=== PATIENT | male | born 1990 | race Two or more races ===

== ENCOUNTER → 2020-04-26 10:29 | Outpatient (BNVA) | payer SELFPAY | PROVIDERS: Visit Provider Urology | DX: Z76.89 Persons encountering health services in other specified circumstances (principal) | CPT/HCPCS: 55250 ==

== ENCOUNTER 2020-11-02 14:02 | Outpatient (REF) | payer OTHER, SELFPAY ==
--- NOTE | ~2020-11-02 | XR_ITS ---
EXAMINATION: XR chest 2V CLINICAL INFORMATION: Reason for Exam OTHER CHEST PAIN COMPARISON: No prior chest x-ray available in our system for comparison at the time of this dictation. TECHNIQUE: XR chest 2V Lungs and Brittny: Both lungs are clear. Pleura: Normal. Costophrenic angles are sharp. No pneumothorax. Heart: The heart is normal in size. Mediastinum: The mediastinum is within normal limits.. Bones: Skeletal structures included are normal for patient's age. XR/XR chest 2V IMPRESSION: Normal chest x-ray.
--- NOTE | 2020-11-02 14:12 | ECG_ITS ---
Test Reason : CP Blood Pressure : / mmHG Vent. Rate : 068 BPM Atrial Rate : 068 BPM P-R Int : 148 ms QRS Dur : 088 ms QT Int : 366 ms P-R-T Axes : 031 068 -05 degrees QTc Int : 389 ms Normal sinus rhythm Abnormal QRS-T angle, consider primary T wave abnormality Abnormal ECG When compared with ECG of 09-MAY-2009 09:27, No significant change was found Referred By: Marielle Sharma Electronically Signed By:Abilio Chase
== END 2020-11-02 14:03 | disposition home or self-care (01) ==
LOC: HO.XRAY 14:02
PROVIDERS: PCP Nurse Practitioner Primary Care; Visit Provider Nurse Practitioner Primary Care
DX: R07.89 Other chest pain (principal); S20.212D Contusion of left front wall of thorax, subsequent encounter; S29.8XXD Other specified injuries of thorax, subsequent encounter; X58.XXXD Exposure to other specified factors, subsequent encounter
CPT/HCPCS: 71046; 93005

== ENCOUNTER 2025-03-13 16:33 | Outpatient (REF) | payer OTHER, SELFPAY ==
--- OUTSIDE RECORDS SUMMARY | 2025-03-13 11:30 | XMS_ITS | Encounter Summary ---
Author Organization [employer] Address [address] [place] [address] [place] [address] Care Team Providers Care Contact Center Associate Name Role Phone Marielle Sharma Primary Care Provider [phone] Reason for Referral * Hospital - Outpatient (Routine) - Pending Review Specialty Diagnoses / Procedures Referred By Lindsay gracia Referred To Contact Diagnoses Daytime somnolence Procedures Polysomnography Marielle Sharma ANP [address] [place] [address] Phone: tel: fax: Sleep Medicine Service [address], [address] [place] [address] Phone: tel: fax: Referral ID Status Reason Start Date Expiration Date V isits Requested Visits Authorized [id number] Pending Review 03/13/2025 03/13/2026 1 1 Encounter Details Date Type Department Care Team (Late st Contact Info) Description 03/13/2025 11:30 AM EDT Office Visit [facility] MEDICINE [address] [place] [address] Marielle Sharma ANP [address] [place], [place] [phone] Daytime somnolence (Primary Dx); Acute pain of left shoulder; Healthcare maintenance; Routine screening for STI (sexually transmitted infection); Vitamin D insufficiency; Elevated lipids; Other headache syndrome Social History Tobacco Use Types Packs/Day Years Used Date Smoking Tobacco: Never Passive Smoke Exposure: Never Smokeless Tobacco: Never Alcohol Use Standard Drinks/Week Comments Not Currently 0 (1 standard drink = 0.6 oz pur e alcohol) oca Depression Answer Date Recorded Patient Health Questionnaire-9 Score 4 11/25/2024 Patient Health Questionnaire-9 Score 4 11/25/2024 Last PHQ-9: Questionnaire Data Not on file 0 11/25/2024 Housing Stability Answer Date Recorded What is your housing situation today? I have wally oakley 03/13/[address] you li ve. Do you have problems with any of the following? None of the above 03/13/2025 Food Insecurity Answer Date Recorded Within the past 12 months, y ou worried that your food would run out before you got money to buy more: Never True 03/13/2025 Within the past 12 months,th e food you bought just didn't last and you didn't have enough money to get more: Never True Transportation Answer Date Recorded In the past 12 months, has l ack of transportation kept you from medical appts, meetings, work or from getting things needed for daily living? No 03/13/2025 Utilities Answer Date Recorded In the past 12 months, has t he electric, gas, oil or water company threatened to shut off services in your home? Yes 03/13/2025 Depression Answer Date Recorded Patient Health Questionnaire-2 Score 2 11/25/2024 Internet Access Answer Date Recorded Internet Access Q1 Yes 03/13/2025 Internet Access Q2 Not on file 03/13/2025 Sex and Gender Information Value Date Recorded Sex Assigned at Male 05/19/2022 10:16 AM EDT Legal Sex Male 10:16 AM EDT Gender Identity Male 05/19/2022 10:16 AM EDT Sexual Orientation Straight 05/19/2022 10 :16 AM EDT documented as of this encounter Last Filed Vital Signs Vital Sign Reading Time Taken Comments Blood Pressure 120/70 03/13/2025 11:46 AM EDT Pulse 62 03/13/2025 11:46 AM EDT Temperature 36.7 C (98.1 F) 03/13/2025 11:46 AM EDT Respiratory Rate 20 03/13/2025 11:46 AM EDT Oxygen Saturation 98% 03/13/2025 11:46 AM EDT Inhaled Oxygen Concentration - - Weight 73.6 kg (162 lb 3.2 oz) 03/13/2025 11:46 AM EDT Height 172.7 cm (5' 8 ) 03/13/2025 11:46 AM EDT Body Mass Index 24.66 03/13/2025 11:46 AM EDT documented in this encounter Plan of Treatment Upcoming Encounters Date Type Department Care Team (Late st Contact Info) Description 05/01/2025 3:15 PM EDT Office Visit [facility] MEDICINE [address] [place] [address] Marielle Sharma ANP [address] [place] [address] Scheduled Orders Name Type Priority Associated Diagnoses Orde r Schedule Chlamydia/N. Gonorrhoeae, PCR, Urine Lab Routine Routine screening for STI (sexually transmitted infection) Ordered: 03/13/2025 Hepatitis C Antibody with Reflex to HCV, RNA, Quantitative, Real-Time PCR Lab Routine Routine screening for STI (sexually transmitted infection) Expected: 03/13/2025 (Approximate), Expires: 03/13/2026 HIV-1/2 Antigen and Antibodies, Fourth Generation, with Reflexes Lab Routine Routine screening for STI (sexually transmitted infection) Expected: 03/13/2025 (Approximate), Expires: 03/13/2026 Syphilis Screen Lab Routine Routine screening for STI (sexually transmitted infection) Expected: 03/13/2025 (Approximate), Expires: 03/13/2026 Lipid Panel, Standard Lab Routine Elevated lipids Expected: 03/13/2025 (Approximate), Expires: 03/13/2026 Polysomnography Sleep Center Routine Daytime somnolence Expected: 03/13/2025 (Approximate), Expires: 03/13/2026 Comprehensive Metabolic Panel Lab Routine Daytime somnolence Expected: 03/13/2025 (Approximate), Expires: 03/13/2026 CBC auto differential Lab Routine Daytime somnolence Expected: 03/13/2025 (Approximate), Expires: 03/13/2026 documented as of this encounter Visit Diagnoses Diagnosis Daytime somnolence- Primary Acute pain of left shoulder Healthcare maintenance Routine screening for STI (sexually transmitted infection) Screening examination for venereal disease Vitamin D insufficiency Elevated lipids Other headache syndrome documented in this encounter Additional Health Concerns Assessment Noted Time PHQ-9 Depression Total Score: 4 11/26/19 25 3:27 PM EDT documented as of this encounter Care Teams Contact Center Associate Relationship Specialty Start Date End Date Marielle Sharma ANP [address] [place] [address] PCP - General Family Medicine 01/10/20 documented as of this encounter
--- OUTSIDE RECORDS SUMMARY | 2025-03-13 18:12 | XMS_ITS | Encounter Summary ---
Author Organization [employer] Address [address] [facility] 7t [place] [address] Care Team Providers Care Dining Room Cashier Name Role Phone Marielle Sharma Primary Care Provider [phone] Encounter Details Date Type Department Care Team (Latest Contact Info) Description 03/13/2025 Travel Social History Tobacco Use Types Packs/Day Years [...] AM EDT documented as of this encounter Plan of Treatment Upcoming Encounters Date Type Department Care Team (Late st Contact Info) Description 05/01/2025 3:15 PM EDT Office Visit [facility] MEDICINE [address] [place] [address] Marielle Sharma ANP [address] [place] [address] documented as of this encounter Visit Diagnoses Not on filedocumented in this encounter Additional Health Concerns Assessment Noted Time PHQ-9 Depression Total Score: 4 11/26/19 25 3:27 PM EDT documented as of this encounter Care Teams Dining Room Cashier Relationship Specialty Start Date End Date Marielle Sharma ANP [address] [place] [address] PCP - General Family Medicine 01/10/20 documented as of this encounter
--- OUTSIDE RECORDS SUMMARY | 2025-03-13 18:12 | XMS_ITS | Encounter Summary ---
Author Organization [employer] Address [address] [place] [address] 7 [place] [address] Care Team Providers Care Head Golf Coach Name Role Phone Marielle Sharma Primary Care Provider [phone] Reason for Visit * Reason Onset Date Comments CHART PREP 03/10/2025 Encounter Details Date Type Department Care Team ([facility] st Contact Info) Description 03/10/2025 Telephone [facility] MEDICINE [address] [place], [place] [phone] Marielle Sharma ANP [address] [place], [place] [phone] CHART PREP Social History Tobacco Use Types Packs/Day Years [...] housing situation today? I have wally oakley 05/14/[address] you li ve. Do you have problems with any of the following? None of the above 05/14/2023 Food Insecurity Answer Date Recorded Within the past 12 months, y ou worried that your food would run out before you got money to buy more: Never True 05/14/2023 Within the past 12 months,th e food you bought just didn't last and you didn't have enough money to get more: Never True Transportation Answer Date Recorded In the past 12 months, has l ack of transportation kept you from medical appts, meetings, work or from getting things needed for daily living? No 05/14/2023 Utilities Answer Date Recorded In the past 12 months, has t he electric, gas, oil or water company threatened to shut off services in your home? No 05/14/2023 Depression Answer Date Recorded Patient Health Questionnaire-2 Score 2 11/25/2024 Sex and Gender Information Value Date Recorded Sex Assigned at Male 05/19/2022 10:16 AM EDT Legal Sex Male 10:16 AM EDT Gender Identity Male 05/19/2022 10:16 AM EDT Sexual Orientation Straight 05/19/2022 10 :16 AM EDT documented as of this encounter Miscellaneous Notes * Telephone Encounter - Dania Hwang [place] - 03/10/2025 3:26 PM EDT Chart Prep Labs: not applicable Images: not applicable Referrals: not applicable Vaccines due: Covid and Tdap Screenings: not applicable Overdue care gaps: SDOH and Oral health screening documented in this encounter Plan of Treatment Upcoming Encounters Date Type Department Care Team (Late st Contact Info) Description 05/01/2025 3:15 PM EDT Office Visit [facility] MEDICINE [address] [place] [address] Marielle Sharma ANP [address] [place] [address] documented as of this encounter Visit Diagnoses Not on filedocumented in this encounter Additional Health Concerns Assessment Noted Time PHQ-9 Depression Total Score: 4 11/26/19 25 3:27 PM EDT documented as of this encounter Care Teams Head Golf Coach Relationship Specialty Start Date End Date Marielle Sharma ANP [address] [place] [address] PCP - General Family Medicine 01/10/20 documented as of this encounter
--- OUTSIDE RECORDS SUMMARY | 2025-03-13 18:12 | XMS_ITS | Clinical Summary ---
Author Organization [employer] Address [address] [place] [address] 7t [place] [address] Care Team Providers Care Freight Claim Investigator Name Role Phone Marielle Sharma Primary Care Provider [phone] Allergies No known active allergies Medications * This document contains information received from the source organization and may not represent a complete record from that organization. butalbital-luis e taminophen-caf feine 50-325-40 MG tabletIndicati ons:Other headache syndrome Take 1-2 tablets as needed for headache, do not take more than 6 tablets in 24hrs 15 tablet 1 11/26/19 25 Active naproxen (Naprosyn) 500 MG tabletIndicati ons:Acute pain of left shoulder,Other headache syndrome 1 tablet by mouth as needed up to every 12 hours 60 tablet 1 03/13/20 25 Active cyclobenzaprin e (Flexeril) 5 MG tabletIndicati ons:Acute pain of left shoulder Take 1-2 tabs as needed at bedtime for shoulder pain 30 tablet 03/13/20 25 Active acetaminophen (Tylenol Extra Strength) 500 MG tabletIndicati ons:Acute pain of left shoulder 1-2 tabs as needed every 6-8 hours, do not take more than 6 tablets in 24 hours 60 tablet 03/13/20 25 Active naproxen (Naprosyn) 500 MG tabletIndicati ons:Other headache syndrome 1 tablet by mouth as needed up to every 12 hours 60 tablet 1 11/26/19 25 025 Discontinued(Re order (will not trigger notification to Pharmacy)) Active Problems Problem Noted Date Diagnosed Date Elevated lipids 03/13/2025 Vitamin D insufficiency 03/13/2025 Daytime somnolence 03/13/2025 Other headache syndrome 11/25/2024 Acute otitis media 11/25/2024 Hamstring injury, right, initial encounter 02/16 Assessment & Plan (02/16/2023 4:04 PM EDT): Continue with rolling on right thigh and heat to affected area Continue ibuprofen prn Needs to be referred to PT due to nature of his job will need full recovery before getting back to work without restrictions Supplemental medical certificate filled out to go back to work with restrictions Pearly penile papules 02/13/2023 Balanitis 02/13/2023 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 Allergic rhinitis 08/01/2013 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 Encounters Date Type Department Care Team Description 03/13/2025 11:30 AM EDT Office Visit [address] [address] Marielle Sharma ANP Daytime somnolence (Primary Dx); Acute pain of left shoulder; Healthcare maintenance; Routine screening for STI (sexually transmitted infection); Vitamin D insufficiency; Elevated lipids; Other headache syndrome 03/13/2025 Travel 03/10/[address] [address] Marielle Sharma ANP CHART PREP 03/10/[address] [address] Marielle Sharma ANP ER Follow-up 02/17/[address] [address] Marielle Sharma ANP Lab Orders from Last 3 Months Immunizations Immunization Administration Dates Next Due DTaP, 5 pertussis antigens 1996,,05/13/1993,03/11,01/08/1993 HPV, Quadrivalent 10/17/2010,03/21/2010,09/20/19 10 Hep A, ped/adol, 2 dose 10/17/2010,03/21/2010 Hep B, Adolescent or Pediatric 05/13/1993,1992,01/08/1993 Hib (HbOC) 02/13/1994, 3,03/11/1993,01/08 IPV 1996, 4,03/11/1993,01/08 Influenza, Split (incl. ana fied surface antigen) 07/30/2012 MMR 1996,11/11/1993 Meningococcal MCV4P [id number]-135 10/16/2009 Td (adult), 5 Lf tetanus tox oid, preservative free, adsorbed 12/12/2002 Tdap 10/16/2009 Varicella 10/16/2009,03/17/2000 Social History Tobacco Use Types Packs/Day Years Used Date Smoking Tobacco: Never Passive Smoke Exposure: Never Smokeless Tobacco: Never Tobacco Cessation:Counseling Given: Not Answered Alcohol Use Standard Drinks/Week Comments Not Currently [...] Orientation Straight 05/19/2022 10 :16 AM EDT Last Filed Vital Signs Vital Sign Reading [...] Mass Index 24.66 03/13/2025 11:46 AM EDT Plan of Treatment Upcoming Encounters Date Type Department Care Team (Late st Contact Info) Description 05/01/2025 3:15 PM EDT Office Visit [facility] MEDICINE [address] [place], [place] [phone] Marielle Sharma, ANP [address] [place], [place] [phone] Health Maintenance Due Date Last Done Comments Family Planning (PISQ) 11/09/2007 DTaP/Tdap/Td Vaccines (7 - Td or Tdap) 10/17/2019 10/16/2009, 12/12/2002, 1996, Additional history exists COVID-19 Vaccine ( season) 2024 03/06/2021, 02/06/2021 Influenza Vaccine (#1) 2025 07/30/2012 Alcohol/Substance Use Screening 11/25/2025 11/25/2024 Depression Screening 11/25/2025 11/25/2024, 11/26/19 Disability Screening 11/25/2025 11/25/2024 SDOH Screening 03/13/2026 03/13/2025 Tobacco Screening 03/13/2026 03/13/2025 Zoster Vaccines (1 of 2) 2042 RSV Patients and Patients Aged 60 years or older (1 - 1-dose 75+ series) 11/09/2067 Hepatitis B Vaccines Completed 05/13/1993, 03/11/1993, 01/08/1993 HIB Vaccines Completed 02/13/1994, 04/20, 03/11/1993, Additional history exists IPV Vaccines Completed 1996, 09/17, 03/11/1993, Additional history exists Meningococcal Vaccine Completed 10/16/2009 HPV Vaccines Completed 10/17/2010, 08/2009, 09/19/2009 Hepatitis A Vaccines Completed 10/17/2010, 03/21/20 10 HIV Screening Completed 04/16/2022 Hepatitis C Screening Completed 04/16/2022 Meningococcal B Vaccine Aged Out No l onger eligible based on patient's age to complete this topic Pneumococcal Vaccine: Pediatrics (0 to 5 Years) and At-Risk Patients (6 to 49) Years Aged Out No longer eligible based on patient's age to complete this topic RSV under 20 months Aged Out No longe r eligible based on patient's age to complete this topic Rotavirus Vaccines Aged Out No longer eligible based on patient's age to complete this topic Procedures Procedure Name Priority Date/Time Associated Diagnosis Comments ZZZ HISTORICAL HEPATITIS C AB W/REFL TO HCV RNA, QN, PCR Routine 04/16/2022 2:16 PM EDT HIV 1/2 ANTIGEN/ANTIBODY, FOURTH GENERATION W/RFL Routine 04/16/2022 2:16 PM EDT from Last 3 Months or Most Recently Relevant to Health Maintenance Results * HEPATITIS C AB W/REFL TO HCV RNA, QN, PCR (04/16/2022 2:16 PM EDT) HEPATITIS C ANTIBODY NON-REACTI VE NON-REACT TRICE CONVERTED LEGACY LABS INDEX 0.08 <1.00 CONVERTED LEGACY LABS Comment: HCV antibody was non-reactive. There is no laboratory evidence of HCV infection. In most cases, no further action is required. However, if recent HCV exposure is suspected, a test for HCV RNA (test code 62157) is suggested. For additional information please refer to http://education.[employer]/faq/OUY40d7 (This link is being provided for informational/ educational purposes only.) 04/16/2022 2:16 PM EDT us Marielle Sharma ANP HISTORICAL/NON ORDERABLE LABS Fi nal Result Performing Organization Address [facility] de Phone Number CONVERTED LEGACY LABS * HIV 1/2 ANTIGEN/ANTIBODY,FOURTH GENERATION W/RFL (04/16/2022 2:16 PM EDT) HIV-1/2 ANTIGEN AND ANTIBODIES, 4TH GENERATION W/ REFLEX NON-REACT TRICE NON-REACT TRICE CONVERTED LEGACY LABS Comment: HIV-1 antigen and HIV-1/HIV-2 antibodies were not detected. There is no laboratory evidence of HIV infection. PLEASE NOTE: This information has been disclosed to you from records whose confidentiality may be protected by state law. If your state requires such protection, then the state law prohibits you from making any further disclosure of the information without the specific written consent of the person to whom it pertains, or as otherwise permitted by law. A general authorization for the release of medical or other information is NOT sufficient for this purpose. For additional information please refer to http://education.[employer]/faq/WRU020 (This link is being provided for informational/ educational purposes only.) The performance of this assay has not been clinically validated in patients less than 2 years old. 04/16/2022 2:16 PM EDT us Marielle Sharma ANP LAB BLOOD ORDERABLES Final Resul t Performing Organization Address [facility] de Phone Number CONVERTED LEGACY LABS from Last 3 Months or Most Recently Relevant to Health Maintenance Insurance [facility] Care Teams Freight Claim Investigator Relationship Specialty Start Date End Date Marielle Sharma ANP [address] [place] [id number] PCP - General Family Medicine 01/10/20
--- OUTSIDE RECORDS SUMMARY | 2025-03-13 18:12 | XMS_ITS | Encounter Summary ---
Author Organization [employer] Address [address] [place] [address] 7 [place] [address] Care Team Providers Care Apparel Rental Clerk Name Role Phone Mareille Sharma Primary Care Provider [phone] Reason for Visit * Reason Onset Date Comments ER Follow-up 03/10/2025 Encounter Details Date Type Department Care Team ([facility] st Contact Info) Description 03/10/2025 Telephone [facility] MEDICINE [address] [place], [place] [phone] Marielle Sharma ANP [address] [place] [address] ER Follow-up Social History Tobacco Use Types Packs/Day Years [...] encounter Miscellaneous Notes * Telephone Encounter - Ester Flores RN - 03/10/2025 3:05 PM EDT TC placed to the pt to follow up on [facility] ED visit from 03/09/2025 in which the pt was seen for a leftshoulder sprain. The pt was advised to schedule with [facility] and is still awaiting an appt. The pt wanted to schedule with PCP as there is some documentation that needs to be filled out. The pt was agreeable to this appt and had no further questions at this time. Pt scheduled with PCP on 03/13/2025. * Telephone Encounter - Rickey Osorio - 03/10/2025 9:28 AM EDT Patient calling to report ED visit on : Date: 03/09/25 Hospital: [facility] Seen for: AC Joint injury Please contact pt at [phone]. documented in this encounter Plan of Treatment Upcoming Encounters Date Type Department Care Team (Late st Contact Info) Description 05/01/2025 3:15 PM EDT Office Visit [facility] MEDICINE [address] [place] [address] Marielle Sharma ANP [address] [place] [address] documented as of this encounter Visit Diagnoses Not on filedocumented in this encounter Additional Health Concerns Assessment Noted Time PHQ-9 Depression Total Score: 4 11/26/19 25 3:27 PM EDT documented as of this encounter Care Teams Apparel Rental Clerk Relationship Specialty Start Date End Date Marielle Sharma ANP [address] [place] [address] PCP - General Family Medicine 01/10/20 documented as of this encounter
--- OUTSIDE RECORDS SUMMARY | 2025-03-13 18:12 | XMS_ITS | Clinical Summary ---
Author Organization [employer] [facility] ity Address [address] [place] [address] Care Team Providers Care Clinical Pharmacy Manager Name Role Phone Unavailable Primary Care Provider Unavailabl e Social History Tobacco Use Types Packs/Day Years Used Date Smoking Tobacco: Never Assessed Sex and Gender Information Value Date Recorded Sex Assigned at Not on file Legal Sex Male 11:38 PM EST Gender Identity Not on file Sexual Orientation Not on file Plan of Treatment Health Maintenance Due Date Last Done Comments DTaP,Tdap,and Td Vaccines (1 - Tdap) 11/09/2011 Hepatitis B Vaccines (1 of 3 - 19+ 3-dose series) 11/09/2011 COVID-19 Vaccine (2023-2 5 season) 2024 Depression Screening 07/20/2024 Influenza Vaccine (#1) 2025 HIB Vaccines Aged Out No longer eligi ble based on patient's age to complete this topic HPV Vaccines Aged Out No longer eligi ble based on patient's age to complete this topic Hepatitis A Vaccines Aged Out No long er eligible based on patient's age to complete this topic IPV Vaccines Aged Out No longer eligi ble based on patient's age to complete this topic MMR Vaccines Aged Out No longer eligi ble based on patient's age to complete this topic Meningococcal ACWY Vaccine Aged Out N o longer eligible based on patient's age to complete this topic Meningococcal B Vaccine Aged Out No l onger eligible based on patient's age to complete this topic Pneumococcal Vaccine: Pediat rics (0 to 5 Years) and At-Risk Patients (6 to 49 Years) Aged Out No longer eligible b ased on patient's age to complete this topic RSV Immunization Patients Un junior 20 months Aged Out No longer eligible b ased on patient's age to complete this topic Varicella Vaccines Aged Out No longer eligible based on patient's age to complete this topic
[2025-03-14 04:56] LABS: CT PCR Urine NOT DETECTED (Not Detect.); NG PCR Urine NOT DETECTED (Not Detect.)
== END 2025-03-13 16:34 | disposition home or self-care (01) ==
LOC: HO.HHCLNP 16:33
PROVIDERS: Visit Provider Nurse Practitioner Primary Care
DX: Z20.2 Contact with and (suspected) exposure to infections with a predominantly sexual mode of transmission (principal)
CPT/HCPCS: 87491; 87591

== ENCOUNTER 2025-05-01 15:39 | Outpatient (REF) | payer OTHER, SELFPAY ==
--- OUTSIDE RECORDS SUMMARY | 2025-05-01 15:15 | XMS_ITS | Encounter Summary ---
Author Organization [employer] Address [address] [place] [address] 7 [place] [address] Care Team Providers Care Powder Guard Name Role Phone Marielle Sharma Primary Care Provider [phone] Reason for Visit * Reason Comments Follow-up Encounter Details Date Type Department Care Team ([facility] st Contact Info) Description 05/01/2025 3:15 PM EDT Office Visit [facility] [address] [place], [place] [phone] Marielle Sharma ANP [address] [place] [address] Daytime somnolence (Primary Dx); Acute pain of left shoulder Social History Tobacco Use Types Packs/Day Years [...] Sign Reading Time Taken Comments Blood Pressure 112/66 05/01/2025 3:09 PM EDT Pulse 87 05/01/2025 3:09 PM EDT Temperature 36.8 C (98.2 F) 05/01/2025 3:09 PM EDT Respiratory Rate 14 05/01/2025 3:09 PM EDT Oxygen Saturation 98% 05/01/2025 3:09 PM EDT Inhaled Oxygen Concentration - - Weight 74.4 kg (164 lb) 05/01/2025 3:09 PM EDT Height 172.7 cm (5' 8 ) 05/01/2025 3:09 PM EDT Body Mass Index 24.94 05/01/2025 3:09 PM EDT documented in this encounter Plan of Treatment Not on file documented as of this encounter Visit Diagnoses Diagnosis Daytime somnolence- Primary Acute pain of left shoulder documented in this encounter Additional Health Concerns Assessment Noted Time PHQ-9 Depression Total Score: 4 11/26/19 25 3:27 PM EDT documented as of this encounter Care Teams Powder Guard Relationship Specialty Start Date End Date Marielle Sharma ANP [address] [place] [id number] PCP - General Family Medicine 01/10/20 documented as of this encounter
--- OUTSIDE RECORDS SUMMARY | 2025-05-01 15:43 | XMS_ITS | Encounter Summary ---
Author Organization [employer] Address [address] [facility] 7t [place] [address] Care Team Providers Care State Attorney Name Role Phone Marielle Sharma Primary Care Provider [phone] Encounter Details Date Type Department Care Team (Latest Contact Info) Description 05/01/2025 Travel Social History Tobacco Use Types Packs/Day [...] as of this encounter Plan of Treatment Not on file documented as of this encounter Visit Diagnoses Not on filedocumented in this encounter Additional Health Concerns Assessment Noted Time PHQ-9 Depression Total Score: 4 11/26/19 25 3:27 PM EDT documented as of this encounter Care Teams State Attorney Relationship Specialty Start Date End Date Marielle Sharma ANP [address] [place] [address] PCP - General Family Medicine 01/10/20 documented as of this encounter
--- OUTSIDE RECORDS SUMMARY | 2025-05-01 15:43 | XMS_ITS | Encounter Summary ---
Author Organization [employer] Address [address] [facility] [address] 7t [place] [address] Care Team Providers Care Child And Family Services Worker Name Role Phone Marielle Sharma GRANT Primary Care Provider [phone] Encounter Details Date Type Department Care Team ([facility] st Contact Info) Description 04/28/2025 Telephone [facility] [address] [place], [place] [phone] Loree Colón [place] Social History Tobacco Use Types Packs/Day Years [...] the past 12 months, has t he [employer] oil or water company threatened to shut [...] encounter Miscellaneous Notes * Telephone Encounter - Loree Colón [place] - 04/28/2025 2:09 PM EDT Chart Prep Labs: not done Images: not applicable Referrals: complete Vaccines due: Covid, Flu, and Tdap Screenings: not applicable Overdue care gaps: Not applicable documented in this encounter Plan of Treatment Not on file documented as of this encounter Visit Diagnoses Not on filedocumented in this encounter Additional Health Concerns Assessment Noted Time PHQ-9 Depression Total Score: 4 11/26/19 25 3:27 PM EDT documented as of this encounter Care Teams Child And Family Services Worker Relationship Specialty Start Date End Date Marielle Sharma ANP [address] [place] [address] PCP - General Family Medicine 01/10/20 documented as of this encounter
--- OUTSIDE RECORDS SUMMARY | 2025-05-01 15:43 | XMS_ITS | Encounter Summary ---
Author Organization [employer] Address [address] [facility] 7t [place] [address] Care Team Providers Care Computer Trainer Name Role Phone Marielle Sharma Primary Care Provider [phone] Encounter Details Date Type Department Care Team ([facility] st Contact Info) Description 04/03/2025 Results Follow-Up [facility] [address] [place] [address] Marielle Sharma ANP [address] [place] [address] Chlamydia/N. Gonorrhoeae, PCR, Urine Social History Tobacco Use Types Packs/Day Years [...] documented as of this encounter Care Teams Computer Trainer Relationship Specialty Start Date End Date Marielle Sharma ANP [address] [place] [id number] PCP - General Family Medicine 01/10/20 documented as of this encounter
--- OUTSIDE RECORDS SUMMARY | 2025-05-01 15:43 | XMS_ITS | Clinical Summary ---
Author Organization [employer] [facility] ity Address [address] [place] [address] Care Team Providers Care Cage Unloader Name Role Phone Unavailable Primary Care Provider [...] of 3 - 19+ 3-dose series) 11/09/2011 HPV Vaccines (1 - 3-dose SCD M series) 11/09/2019 Depression Screening 07/20/2024 COVID-19 Vaccine (1 - 2023-2 5 season) 2025 Influenza Vaccine (#1) 2025 RSV Immunization Adult Patie nts (1 - 1-dose 75+ series) 11/09/2067 HIB Vaccines Aged Out No longer eligi [...]
--- OUTSIDE RECORDS SUMMARY | 2025-05-01 15:43 | XMS_ITS | Clinical Summary ---
Author Organization [employer] Address [address] [place] [address] 7t [place] [address] Care Team Providers Care Milling Machine Set Up Operator Name Role Phone Marielle Sharma Primary Care Provider [phone] Allergies No known active allergies Medications * This document contains information received from the source organization and may not represent a complete record from that organization. butalbital-acet aminophen-caffe ine 50-325-40 MG tabletIndicatio ns:Other headache syndrome Take 1-2 tablets as needed for headache, do not take more than 6 tablets in 24hrs 15 tablet 1 11/25/2024 Active naproxen (Naprosyn) 500 MG tabletIndicatio ns:Acute pain of left shoulder,Other headache syndrome 1 tablet by mouth as needed up to every 12 hours 60 tablet 1 03/13/2025 Active cyclobenzaprine (Flexeril) 5 MG tabletIndicatio ns:Acute pain of left shoulder Take 1-2 tabs as needed at bedtime for shoulder pain 30 tablet 03/13/2025 Active acetaminophen (Tylenol Extra Strength) 500 MG tabletIndicatio ns:Acute pain of left shoulder 1-2 tabs as needed every 6-8 hours, do not take more than 6 tablets in 24 hours 60 tablet 03/13/2025 Active Active Problems Problem Noted Date Diagnosed Date [...] Encounters Date Type Department Care Team Description 05/01/2025 3:15 PM EDT Office Visit [facility] [address] [place] [phone] Marielle Sharma ANP Daytime somnolence (Primary Dx); Acute pain of left shoulder 05/01/2025 Travel 04/28/2025 Telephone [facility] [address] [place] [address] Loree Colón [place] 04/03/2025 Results Follow-Up [address] [address] Marielle Sharma ANP Chlamydia/N. Gonorrhoeae, PCR, Urine 03/31/2025 Travel 03/16/2025 Telephone [facility] [address] [place] [phone] Marielle Sharma ANP SLEEP STUDY ORDER 03/13/2025 1:15 PM EDT Office Visit [address] [address] Marielle Sharma ANP Acute pain of left shoulder (Primary Dx); Encounter related to worker's compensation claim 03/13/2025 11:30 AM EDT Office Visit [address] [address] Marielle Sharma ANP Daytime somnolence (Primary Dx); Acute pain of left shoulder; Healthcare maintenance; Routine screening for STI (sexually transmitted infection); Vitamin D insufficiency; Elevated lipids; Other headache syndrome 03/13/2025 Travel 03/10/[address] [address] Marielle Sharma ANP CHART PREP 03/10/[address] [address] Marielle Sharma ANP ER Follow-up 02/17/2025 Telephone [facility] [address] [place] [address] Marielle Sharma ANP Lab Orders from Last 3 Months Immunizations Immunization Administration Dates Next Due DTaP, 5 pertussis antigens 1996,,05/13/1993,03/11,01/08/1993 HPV, Quadrivalent 10/17/2010,03/21/2010,09/20/19 10 Hep A, ped/adol, 2 dose 10/17/2010,03/21/2010 Hep B, Adolescent or Pediatric 05/13/1993,1992,01/08/1993 Hib (HbO) 02/13/1994, 3,03/11/1993,01/08 IPV 1996, 4,03/11/1993,01/08 Influenza, Split [...] Mass Index 24.94 05/01/2025 3:09 PM EDT Plan of Treatment Health Maintenance Due Date Last Done Comments Family Planning (PISQ) 11/09/2007 DTaP/Tdap/Td Vaccines (7 - Td or Tdap) 10/17/2019 10/16/2009, 12/12/2002, 1996, Additional history exists COVID-19 Vaccine ( - season) 2025 03/06/2021, 02/06/2021 Influenza Vaccine (#1) 2025 07/30/2012 Alcohol/Substance Use Screening 11/25/2025 11/25/2024 Depression Screening 11/25/2025 11/25/2024, 11/26/19 Disability Screening 11/25/2025 11/25/2024 SDOH Screening 03/13/2026 03/13/2025 Tobacco Screening 03/29/2026 03/29/2025 Zoster Vaccines (1 of 2) 2042 RSV [...] Procedure Name Priority Date/Time Associated Diagnosis Comments CHLAMYDIA/TRICHOMON /NEISSERIA GONORRHOEAE, PCR, URINE Routine 03/13/2025 12:13 PM EDT Routine screening for STI (sexually transmitted infection) ZZZ HISTORICAL HEPATITIS C AB W/REFL TO HCV RNA, QN, PCR Routine 04/16/2022 2:16 PM EDT HIV 1/2 ANTIGEN/ANTIBODY, FOURTH GENERATION W/RFL Routine 04/16/2022 2:16 PM EDT from Last 3 Months or Most Recently Relevant to Health Maintenance Results * Chlamydia/N. Gonorrhoeae, PCR, Urine (03/13/2025 12:13 PM EDT) CT PCR, Urine NOT DETECTED Not Detect. [facility] Comment:A not detected test result does not exclude the possibilityof infection because test results can be affected byimproper specimen collection, concurrent antibiotic therapy,or the number of organisms in the specimen which may bebelow the sensitivity of the test. As with many diagnostictests, results from the Xpert CT/NG assay should beinterpreted in conjunction with other laboratory andclinical data available to the clinician.The Xpert CT/NG assay should not be used for the evaluationof suspected sexual abuse or for other medico-legalindications. Additional testing is recommended in anycircumstance when false positive or false negative resultscould lead to adverse medical, social or psychologicalconsequences. NG PCR, Urine NOT DETECTED Not Detect. [facility] Comment:A not detected test result does not exclude the possibilityof infection because test results can be affected byimproper specimen collection, concurrent antibiotic therapy,or the number of organisms in the specimen which may bebelow the sensitivity of the test. As with many diagnostictests, results from the Xpert CT/NG assay should beinterpreted in conjunction with other laboratory andclinical data available to the clinician.The Xpert CT/NG assay should not be used for the evaluationof suspected sexual abuse or for other medico-legalindications. Additional testing is recommended in anycircumstance when false positive or false negative resultscould lead to adverse medical, social or psychologicalconsequences. Urine (Urine, Random) 03/13/2025 12:13 PM EDT 03/13/2025 4:34 PM EDT [facility] URINE ORDERABLES Final Resul t [facility] [address] [place] [phone] * HEPATITIS C AB W/REFL TO HCV RNA, QN, PCR (04/16/2022 2:16 PM EDT) Pathologist [facility] HEPATITIS C ANTIBODY NON-REACTI VE NON-REACT TRICE [facility] INDEX 0.08 <1.00 [facility] Comment: HCV antibody was non-reactive. There is no laboratory evidence of HCV infection. In most cases, no further action is required. However, if recent HCV exposure is suspected, a test for HCV RNA (test code 72378) is suggested. For additional information please refer to http://[employer]/faq/[email or web address] (This link is being provided for informational/ educational purposes only.) 04/16/2022 2:16 PM EDT us Marielle Sharma ANP HISTORICAL/NON ORDERABLE LABS Fi nal Result Performing Organization Address [facility] Co de Phone Number CONVERTED [facility]GACY LABS * [...] purpose. For additional information please refer to http://[employer]/faq/RDS320 (This link is being provided for informational/ educational purposes only.) The performance of this assay has not been clinically validated in patients less than 2 years old. 04/16/2022 2:16 PM EDT us Marielle Sharma ANP LAB BLOOD ORDERABLES Final Resul t [facility] from Last 3 Months or Most Recently Relevant to Health Maintenance Insurance [employer] Care Teams Milling Machine Set Up Operator Relationship Specialty Start Date End Date Marielle Sharma ANP [address] [place] [phone] PCP - General Family Medicine 01/10/20
[2025-05-01 17:29] LABS: MANUAL DIFF FLAG NO
[2025-05-01 17:36] LABS: Hematocrit 43.3 % (42.0-52.0); Hemoglobin 14.4 g/dl (14.0-18.0); Imm Gran Abs Auto 0.02 X10*3/uL (0.00-0.03); Imm Gran Pct Auto 0.5 % (0.0-0.4); Lymphocytes Absolute Auto 1.0 X10*3/uL (1.2-4.9); Mean Corpuscular HGB Conc 33.3 g/dl (31.0-36.0); Mean Corpuscular Hemoglobin 27.7 pg (27.0-33.0); Mean Corpuscular Volume 83.3 fL (80.0-98.0); NRBC Abs Auto 0.000 X10*3/uL (0.0-0.012); NRBC Pct Auto 0.0 /100WBC (0.0-0.2); Platelet Count 292 X10*3/uL (160-400); Red Blood Count 5.20 X10*6/uL (4.60-5.80); White Blood Count 4.3 X10*3/uL (4.8-10.8)
[2025-05-01 17:47] LABS: Alanine Aminotransferase 19 U/L (0-40); Albumin Level 4.8 g/dL (3.5-5.0); Alkaline Phosphatase 81 U/L (39-117); Anion Gap 11 (12-20); Aspartate Amino Transferase 52 U/L (5-37); Blood Urea Nitrogen 17 mg/dL (9-16); Calcium 9.2 mg/dL (8.4-10.2); Carbon Dioxide 29 mmol/L (22-29); Chloride 105 mmol/L (96-108); Cholesterol 182 mg/dL (<200); Estimated Glomerular Filt Rate > 60; HDL Cholesterol 44 mg/dL (>40); Potassium 4.4 mmol/L (3.3-5.1); Sodium 141 mmol/L (135-145); Total Protein 8.1 g/dL (6.5-8.0); Triglycerides 231 mg/dL (<150)
[2025-05-02 04:18] LABS: Syphilis Screen Nonreactive (Nonreactive)
[2025-05-02 04:37] LABS: HIV Num 1 0.07 S/CO (0.00-0.99); ~HepC Num1 0.09 S/CO (0.00-0.79); ~Hepatitis C Antibody Nonreactive (Nonreactive)
== END 2025-05-01 15:40 | disposition home or self-care (01) ==
LOC: HO.HHCL 15:39
PROVIDERS: PCP Nurse Practitioner Primary Care; Visit Provider Nurse Practitioner Primary Care
DX: Z11.4 Encounter for screening for human immunodeficiency virus [HIV] (principal); Z11.3 Encounter for screening for infections with a predominantly sexual mode of transmission; R40.0 Somnolence; E78.5 Hyperlipidemia, unspecified
CPT/HCPCS: 36415; 80053; 80061; 85025; 86780; 86803; 87389